=== PATIENT | female | born 1995 | race African-American/Black ===

== ENCOUNTER → 2024-02-28 | Outpatient (CLI) | payer OTHER | LOC: COL.RAD 11:06 | DX: Z02.71 Encounter for disability determination (principal); M25.551 Pain in right hip; M25.562 Pain in left knee; Z98.890 Other specified postprocedural states ==

== ENCOUNTER 2024-05-20 23:21 | Emergency (ER) | payer OTHER ==
[~2024-05-20] VITALS: Ht 167.6 cm; Wt 90.0 kg
[2024-05-20 23:29] VITALS: TEMP 97.2
[2024-05-20] MEDS ORDERED: Meclizine 25 MG TAB PO ONE (23:45)
[2024-05-21] MEDS ORDERED: Home Diazepam 5 MG #2 TAB/PACK PO ONE (01:30)
[2024-05-21] MEDS ORDERED: ZOFRAN ODT4 MG PO (01:34)
[2024-05-21] MEDS ORDERED: ANTIVERT 25MG25 MG PO (01:34)
[2024-05-21 01:46] VITALS: BP 130/84; PULSE 75
== END 2024-05-21 01:46 | disposition home or self-care (01) ==
LOC: COL.ER 23:21
DX: R42 Dizziness and giddiness (principal); R11.0 Nausea